=== PATIENT | female | born 2000 | race Caucasian/White ===

== ENCOUNTER 2024-09-29 22:21 | Emergency (ER) | payer BC ==
[2024-09-29] MEDS ORDERED: Ondansetron 4 MG Tab.DIS PO ONE (22:22)
[2024-09-29] MEDS ORDERED: Sodium Chloride 0.9% 10 ML Syringe FLUSH PRN (22:52)
[2024-09-29 23:12] LABS: GLUCOSE,URINE NORMAL (NORMAL); OCCULT BLOOD,URINE MODERATE (NEGATIVE)
[2024-09-29 23:12] LABS: MEAN PLATELET VOLUME 8.1 fL (7.1-12.4); PLATELET COUNT,PLT 283 x10(3)uL (151-488); RED BLOOD CELL COUNT 4.51 x10(6)uL (3.60-5.20); RED CELL DISTRIBUTION WIDTH 12.2 % (12.3-16.5); WHITE BLOOD CELL COUNT,WBC 29.2 x10-3/uL (3.0-10.3)
[2024-09-29 23:19] LABS: BLOOD UREA NITROGEN,BUN 18 mg/dL (7-18); CARBON DIOXIDE,CO2 24 mmol/L (21-32); CHLORIDE,CL 95 mmol/L (100-110); CREATININE 1.1 mg/dL (0.55-1.02); EST CRCL DRUG DOSING (CG) 57.13 mL/min; ESTIMATED GFR 72 mL/min (>60); GLUCOSE RANDOM 131 mg/dL (80-116); POTASSIUM,K 3.4 mmol/L (3.5-5.3); SODIUM,NA 131 mmol/L (135-145)
[2024-09-29 23:23] LABS: APPEARANCE,URINE CLOUDY (CLEAR)
[2024-09-29 23:25] LABS: A/G RATIO 0.8; ALANINE AMINOTRANSFERASE,ALT 36 U/L (12-36); ASPARTATE AMNIOTRANSFERASE,AST 21 IU/L (5-25); BILIRUBIN TOTAL 0.8 mg/dL (0.1-1.3); PROTEIN TOTAL,TP 7.4 g/dL (6.0-8.0)
[2024-09-29 23:25] LABS: SQUAMOUS EPITHELIAL CELLS,UR FEW (NS,R,O)
[2024-09-29 23:39] LABS: LYMPHOCYTES PERCENT MAN 2 % (13-37); MONOCYTES PERCENT MAN 10 % (4-12); SEG NEUTROPHILS PERCENT MAN 88 % (46-82)
== END 2024-09-30 01:50 | disposition home or self-care (01) ==
LOC: FB.ED 22:21
DX: R11.2 Nausea with vomiting, unspecified (principal); E86.0 Dehydration; N39.0 Urinary tract infection, site not specified; Z88.2 Allergy status to sulfonamides
CPT/HCPCS: 36415; 71046; 80053; 81001; 81025; 83605; 83735; 85025; 86140; 87086; 87088; 87186; 96361; 96365; 96375; 99285; J0696; J2550; J7030; Q0162; 99284